=== PATIENT | male | born 1970 | race American Indian/Alaskan Native ===

== ENCOUNTER 2019-07-14 18:51 | Emergency (ER) | payer OTHER ==
[2019-07-14 19:22] VITALS: BP 144/92
--- NOTE | 2019-07-14 19:54 | Emergency Department Report ---
Chief Complaint: High BP Stated Complaint: HBP Time Seen by Provider: 07/14/19 19:47 - HPI History of Present Illness: 48 y o male presents to ED cc of elevated blood pressure x 2 days since he has been out of his medication he states he is in between getting a new pcp due to his in He denies f/c/v/ryan/blurred vision, chest pain etc - ROS Review of Systems: as noted in HPI - Exam Vital Signs: Vital Signs 07/14/19 07/14/19 19:20 19:45 Temperature 98.0 F Pulse Rate 90 Respiratory 18 16 Rate Blood Pressure 144/92 O2 Sat by Pulse 95 Oximetry Physical Exam: GEN:AAO x 3, no acute distress. CHEST: Regular rate and rhythm, no murmurs, no chest wall tenderness. MSE screening note: Focused history and physical exam performed. Due to findings the following was ordered: ED Medical Decision Making - Medical Decision Making 48-year-old male with history of hypertension presents for medication refill Pt had no the symptoms in the ED. Discussed follow-up with primary care physician. Vital signs are normal patient is in no acute distress. ED Disposition for MSE Clinical Impression: Essential hypertension Disposition: Z-07 MED SCREENING EXAM-LEFT Is pt being admited?: No Does the pt Need Aspirin: No Condition: Stable Instructions: Hypertension (ED) Prescriptions: amLODIPine 10 mg PO DAILY #40 tab Referrals: [facility] [Outside] - 3-5 Days [facility] [Outside] - 3-5 Days [facility] [Provider Group] - 3-5 Days Forms: Accompanied Note, Work/School Release Form(ED) Time of Disposition: 20:04
== END 2019-07-14 20:21 | disposition left against medical advice (07) ==
LOC: ED 18:51
DX: I10 Essential (primary) hypertension (principal); Z76.0 Encounter for issue of repeat prescription
CPT/HCPCS: 99281